=== PATIENT | female | born 1945 | race Caucasian/White ===

== ENCOUNTER → 2017-01-11 | Outpatient (CLI) | payer OTHER ==
[2017-01-11 08:38] LABS: HEMATOCRIT 37.4 % (37.0-47.0); HEMOGLOBIN 12.4 g/dL (12.0-16.0); MEAN CORPUSCULAR HEMOGLOBIN 27.9 PG (27-31); MEAN CORPUSCULAR HGB CONC 33.2 g/dL (33-37); MEAN PLATELET VOLUME 8.7 FL (7.4-12.2); RDW COEFFICIENT OF VARIATION 14.6 % (11.5-14.5); RED BLOOD COUNT 4.45 10^6/uL (4.20-5.40); WHITE BLOOD COUNT 4.15 10^3/uL (4.8-10.8)
[2017-01-11 09:00] LABS: ASPARTATE AMINO TRANSFERASE 29 IU/L (8-39); BILIRUBIN,TOTAL 1.4 mg/dL (0.3-1.2); BLOOD UREA NITROGEN 19 mg/dL (7-22); BUN/CREATININE RATIO 21.11 (6-20); CALCIUM 9.6 mg/dL (8.7-10.7); CHLORIDE 107 meq/L (98-112); CREATININE 0.9 mg/dL (0.50-1.20); EST GLOMERULAR FILTRATION > 60 (>60 ml/min/1.73m(2)); GLUCOSE 91 mg/dL (78-110); HDL CHOLESTEROL 67 mg/dL (40-150); POTASSIUM 4.1 meq/L (3.8-5.2); SODIUM 142 meq/L (135-145); TOTAL PROTEIN 7.1 g/dL (6.1-8.0); TRIGLYCERIDES 78 mg/dL (44-200)
== END ==
LOC: LAB 08:09
PROVIDERS: ATTEND Obstetrics & Gynecology Gynecology
DX: I09.9 Rheumatic heart disease, unspecified (principal); I82.1 Thrombophlebitis migrans; M85.80 Other specified disorders of bone density and structure, unspecified site
CPT/HCPCS: 36415; 80053; 80061; 84443; 85027